=== PATIENT | female | born 1995 | race Caucasian/White ===

== ENCOUNTER 2017-07-19 23:12 | Emergency (ER) | payer OTHER ==
[~2017-07-19] VITALS: Ht 170.2 cm; Wt 83.0 kg
[~2017-07-19 23:12] MED LIST: NAPROSYN500 MG PO
[2017-07-19 23:41] LABS: URINE BILIRUBIN NEGATIVE (Negative); URINE BLOOD 2+ (Negative); URINE CLARITY CLEAR; URINE COLOR YELLOW; URINE GLUCOSE-RANDOM NEGATIVE (Negative); URINE KETONES NEGATIVE (Negative); URINE LEUKOCYTES-REFLEX NEGATIVE (Negative); URINE NITRITE-REFLEX NEGATIVE (Negative); URINE PROTEIN NEGATIVE (Negative); URINE SPECIFIC GRAVITY >= 1.030 (1.005-1.030); URINE UROBILINOGEN 0.2 E.U./dl (0.2-1.0)
[2017-07-19] MEDS ORDERED: FLAGYL500 MG PO (23:44)
[2017-07-19] MEDS ORDERED: NAPROSYN500 MG PO (23:44)
[2017-07-19 23:47] LABS: BACTERIA-REFLEX None Seen /HPF (None Seen); CASTS None Seen /LPF (None Seen); CRYSTALS None Seen /LPF (None Seen); SQUAMOUS >10 Many /LPF (0-3); URINE RBC 3-10 Few /HPF (0-2); URINE WBC-REFLEX 0-5 Rare /HPF (0-5)
[2017-07-19 23:55] VITALS: BP 133/81
== END 2017-07-19 23:55 | disposition home or self-care (01) ==
LOC: M.ERS 23:12
PROVIDERS: Physician Assistant
DX: N76.0 Acute vaginitis (principal); N93.9 Abnormal uterine and vaginal bleeding, unspecified

== ENCOUNTER 2017-09-23 09:34 | Emergency (ER) | payer OTHER ==
[~2017-09-23] VITALS: Ht 170.2 cm; Wt 83.9 kg
[~2017-09-23 09:34] MED LIST changes: +FLAGYL500 MG PO
[2017-09-23 10:24] LABS: ABSOLUTE BASOPHILS 0.1 thou/uL (0.0-0.2); ABSOLUTE EOSINOPHILS 0.1 thou/uL (0.0-0.7); ABSOLUTE LYMPHOCYTES 2.6 thou/uL (0.8-5.3); ABSOLUTE MONOCYTES 0.7 thou/uL (0.0-1.2); ABSOLUTE NEUTROPHILS 7.9 thou/uL (1.6-8.1); BASOPHILS 0.9 %; EOSINOPHILS 0.7 %; HEMATOCRIT 39.6 % (37.0-47.0); HEMOGLOBIN 13.5 gm/dL (12.0-15.0); LYMPHOCYTES 22.6 %; MCH 31.7 pg (26.0-34.0); MCHC 34.2 g/dL (28.0-37.0); MCV 92.7 fL (80.0-100.0); MONOCYTES 6.3 %; MPV 8.1 fl. (7.2-11.1); NUCLEATED RBCS 0 /100WBC; PLATELET COUNT* 343 thou/uL (150-400); POLYS 69.5 %; RBC 4.27 mil/uL (4.20-5.00); RDW-CV 12.4 % (10.5-14.5); WBC 11.4 thou/uL (4.0-11.0)
[2017-09-23 10:32] LABS: CALCIUM 8.5 mg/dL (8.5-10.1); CREATININE 1.1 mg/dL (0.6-1.3); POTASSIUM 3.8 mmol/L (3.5-5.1)
[2017-09-23 10:37] LABS: ALBUMIN 3.9 g/dL (3.4-5.0); TOTAL BILIRUBIN 0.3 mg/dL (<0.1-1.0); TOTAL PROTEIN 7.6 g/dL (6.4-8.2)
[2017-09-23] MEDS ORDERED: NORCO 5-325 TA1 EACH PO (11:41)
[2017-09-23 12:00] VITALS: BP 97/62
[2017-09-24] MEDS ORDERED: FLEXERIL PO (03:45)
== END 2017-09-23 12:00 | disposition home or self-care (01) ==
LOC: M.ERS 09:34
PROVIDERS: Family Medicine
DX: S00.83XA Contusion of other part of head, initial encounter (principal); S40.211A Abrasion of right shoulder, initial encounter; Y04.2XXA Assault by strike against or bumped into by another person, initial encounter; Y93.89 Activity, other specified; Y92.89 Other specified places as the place of occurrence of the external cause; Y99.8 Other external cause status

== ENCOUNTER 2017-09-24 03:23 | Emergency (ER) | payer OTHER ==
[~2017-09-24] VITALS: Ht 170.2 cm; Wt 83.9 kg
[~2017-09-24 03:23] MED LIST changes: +NORCO 5-325 TA1 EACH PO
[2017-09-24 03:29] VITALS: BP 117/84
[2017-09-24] MEDS ORDERED: FLEXERIL PO (03:45)
== END 2017-09-24 03:57 | disposition home or self-care (01) ==
LOC: M.ERS 03:23
DX: M25.511 Pain in right shoulder (principal); F32.9 Major depressive disorder, single episode, unspecified